=== PATIENT | male | born 1965 | race African-American/Black ===

== ENCOUNTER 2016-07-31 15:51 | Emergency (ER) | payer SELFPAY ==
[~2016-07-31] VITALS: Ht 170.2 cm; Wt 99.8 kg
[2016-07-31 15:55] VITALS: BP 138/93
--- NOTE | 2016-07-31 16:04 | PHYS DOC ---
Adult General Chief Complaint Chief Complaint: KNEE INJURY HPI HPI Patient is a 51 year old male with history of diabetes type 2 who presents today with mild right anterior knee pain that has been going on for 1 month. Patient denies any injuries. Review of Systems Review of Systems Constitutional: Denies fever or chills [] Eyes: Denies change in visual acuity, redness, or eye pain [] HENT: Denies nasal congestion or sore throat [] : Denies dysuria or hematuria [] Musculoskeletal: Right knee pain Integument: Denies rash or skin lesions [] Neurologic: Denies headache, focal weakness or sensory changes [] Endocrine: Denies polyuria or polydipsia [] Physical Exam Physical Exam Constitutional: Well developed, well nourished, no acute distress, non-toxic appearance. [] HENT: Normocephalic, atraumatic, bilateral external ears normal, oropharynx moist, no oral exudates, nose normal. [] Eyes: PERRLA, EOMI, conjunctiva normal, no discharge. [] Skin: Warm, dry, no erythema, no rash. [] Back: No tenderness, no CVA tenderness. [] Extremities: Right knee with no obvious deformity. Tenderness noted on medial and lateral aspects of the right knee. Crepitus noted on the knee during exam. Negative Kenroy sign and negative Jamilah's sign negative anterior-posterior drawer sign to the right knee. +2 right pedal pulse. Cap refill less than 2 seconds the right lower extremity. Sensation intact to the right lower extremity. Neurologic: Alert and oriented X 3, normal motor function, normal sensory function, no focal deficits noted. [] Psychologic: Affect normal, judgement normal, mood normal. [] Current Patient Data Vital Signs Vital Signs Date Time Temp Pulse Resp B/P (MAP) Pulse Ox O2 Delivery O2 Flow Rate FiO2 07/31/16 15:55 97.9 91 16 94 Room Air 97.9 EKG EKG [] Radiology/Procedures Radiology/Procedures []PROCEDURE: KNEE RIGHT 4V Indication: Right knee pain. Time of exam 1606 hours. Alignment is normal. The joint spaces are fairly well-maintained apart from mild medial compartmental narrowing. Mild marginal spurring medially is also seen. No fracture, dislocation or significant effusion is seen. Impression: Mild degenerative changes. No acute bony abnormality is detected. DICTATED and SIGNED BY: CAS VILLEGAS MD DATE: 07/31/16 1619 CC: GUS SINCLAIR APRN ~ Course & Med Decision Making Course & Med Decision Making Pertinent Labs and Imaging studies reviewed. (See chart for details) Patient is in the ED with right knee pain no known injury. Right knee x-rays interpreted by radiologist are negative for any acute findings noted for DJD of the knee. Reed wrap was applied to the right knee by the Ed RN, neurovascular exam done by me is normal. Cap refill <2 seconds. Patient was discharged with some pain medicine. Ice elevation encouraged. Provided an orthopedic doctor for follow-up in one week. Dragon Disclaimer Dragon Disclaimer This electronic medical record was generated, in whole or in part, using a voice recognition dictation system. Departure Departure Impression: Primary Impression: Knee pain, right Additional Impression: Degenerative joint disease of knee, right Disposition: 01 HOME, SELF-CARE Condition: STABLE Referrals: BENEDICTO DURAN MD Follow-up in one week Patient Instructions: Knee Pain, [id number] Additional Instructions: You were seen for right ankle pain your knee xrays were noted for arthritis otherwise no acute findings. Ice and elevate the extremity. Wear the Reed wrap as tolerated. Follow-up with the orthopedic doctor provided in one week if pain continues. Scripts Hydrocodone/Apap 5-325 (NORCO 5-325 TABLET) 1 Each Tablet 1-2 TAB PO Q4-6HRS, #12 TAB Prov: GUS SINCLAIR APRN 07/31/16 Problem Qualifiers Primary Impression: Knee pain, right Chronicity: acute Qualified Codes: M25.561 - Pain in right knee Additional Impression: Degenerative joint disease of knee, right Osteoarthritis type: unspecified Qualified Codes: M17.11 - Unilateral primary osteoarthritis, right knee GUS SINCLAIR APRN July 31, 2016 16:04
--- NOTE | 2016-07-31 16:22 | RAD ---
Indication: Right knee pain. Time of exam 1606 hours. Alignment is normal. The joint spaces are fairly well-maintained apart from mild medial compartmental narrowing. Mild marginal spurring medially is also seen. No fracture, dislocation or significant effusion is seen. Impression: Mild degenerative changes. No acute bony abnormality is detected.
[2016-07-31] MEDS ORDERED: HYDR-971 PO (16:35)
== END 2016-07-31 16:47 | disposition home or self-care (01) ==
LOC: ER 15:51
DX: M25.561 Pain in right knee (principal); M17.11 Unilateral primary osteoarthritis, right knee; E11.9 Type 2 diabetes mellitus without complications
CPT/HCPCS: 73564; 99284

== ENCOUNTER 2019-03-09 09:13 | Emergency (ER) | payer SELFPAY ==
[~2019-03-09] VITALS: Ht 170.2 cm; Wt 95.3 kg
[~2019-03-09 09:13] MED LIST: HYDR-3164 PO
[2019-03-09 09:19] VITALS: BP 163/94
--- NOTE | 2019-03-09 10:14 | RAD ---
CHEST PA LATERAL Clinical indications: Cough. COMPARISON: 05/17/2011. Findings: No acute lung infiltrate or pleural effusion or pulmonary edema or lung mass or pneumothorax is seen. The heart size, pulmonary vasculature, mediastinum and both misti are unremarkable. The osseous structures appear intact. Impression: No acute radiographic abnormality is seen. Electronically signed by: Nasir Lux MD (03/09/2019 10:11 AM) [facility]
[2019-03-09 11:07] LABS: INFLUENZA A PATIENT NEGATIVE (NEGATIVE); INFLUENZA B PATIENT NEGATIVE (NEGATIVE)
[2019-03-09] MEDS ORDERED: METH4TAB2 PO ×2 (11:16→11:18)
[2019-03-09] MEDS ORDERED: AZIT250T PO ×2 (11:16→11:18)
[2019-03-09] MEDS ORDERED: BENZ100C PO ×2 (11:16→11:18)
[2019-03-09] MEDS ORDERED: ALBU2.5V8 IH ×2 (11:16→11:18)
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
== END 2019-03-09 11:32 | disposition home or self-care (01) ==
LOC: ER 09:13
DX: J20.9 Acute bronchitis, unspecified (principal); Z71.6 Tobacco abuse counseling
CPT/HCPCS: 71046; 87804; 99285-25

== ENCOUNTER 2019-05-12 06:12 | Emergency (ER) | payer SELFPAY ==
[~2019-05-12] VITALS: Ht 170.2 cm; Wt 95.5 kg
[~2019-05-12 06:12] MED LIST changes: +ALBU2.5V8 IH; +AZIT250T PO; +BENZ100C PO; +METH4TAB2 PO
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
--- NOTE | 2019-05-12 07:52 | RAD ---
Examination: LUMBAR SPINE MIN 4V History: Low back pain after lifting 4 days ago Comparison/Correlation: None Findings: Total of 5 images of the lumbar spine were obtained. Alignment is normal. Mild spurring in the lower lumbar spine noted. No fracture or bone destruction. Mild disc space narrowing at L5-S1. Mild right sacroiliac joint sclerosis is present. Wedge deformity of the T12 vertebral body is present but of indeterminate age. Spurring noted at this level. Impression: Mild degenerative changes. No acute process. Wedge deformity of T12 of indeterminate age. Electronically signed by: Sravan Marcos MD (05/12/2019 7:49 AM) [id number]
--- NOTE | 2019-05-12 09:19 | RAD ---
CT LUMBAR SPINE WO CONTRAST History low back pain. T12 wedge deformity. Technique: Noncontrast CT was performed of the lumbar spine. Multiplanar reconstructions were performed. Exposure: One or more of the following individualized dose reduction techniques were utilized for this examination: 1. Automated exposure control 2. Adjustment of the mA and/or kV according to patient size 3. Use of iterative reconstruction technique. Comparison: None Findings: Chronic T12 anterior vertebral body wedging. Otherwise, normal vertebral body height. No fracture. Normal alignment. Irregularity of the upper sacrum including S1, may relate to prior trauma. Multilevel degenerative disc changes most prominent L5-S1. Multilevel facet arthropathy most prominent L4-L5 and L5-S1. Adenomatous left adrenal gland thickening. T11-T12: No canal narrowing. Moderate facet arthropathy. Moderate bilateral neural foraminal narrowing. T12-L1: Posterior disc protrusion. No canal or neuroforaminal narrowing. L1-L2: Small posterior disc bulge. Mild facet arthropathy. No canal or neuroforaminal narrowing. L2-L3: Posterior disc bulge. Mild facet arthropathy. No canal or neuroforaminal narrowing. L3-L4: Small posterior disc bulge. Mild facet arthropathy. No canal or neuroforaminal narrowing. L4-L5: Broad-based disc bulge. Mild subarticular recess narrowing. No canal narrowing. Moderate facet arthropathy. Ligament of flavum thickening. Mild bilateral neural foraminal narrowing. L5-S1: Severe disc height loss. Vacuum disc phenomenon. Posterior disc osteophyte complex with possible disc extrusion left subarticular recess.. Moderate facet arthropathy. Mild canal narrowing. Subarticular recess narrowing. Moderate to severe left and moderate right neuroforaminal narrowing. Impression: 1. Chronic T12 anterior vertebral body wedging. 2. Multilevel lumbar spondylosis most prominent L5-S1 with subarticular recess and canal narrowing. 3. Multilevel neuroforaminal narrowing most prominent L5-S1, left greater than right. 4. Deformity of the upper sacrum, may relate to prior trauma. Electronically signed by: Christian Mercado DO (05/12/2019 9:15 AM) [facility]
[2019-05-12] MEDS ORDERED: PRED50TA PO (09:27)
[2019-05-12] MEDS ORDERED: CYCL10TA2 PO (09:27)
[2019-05-12] MEDS ORDERED: DICL75TA PO (09:27)
[2019-05-12 09:28] VITALS: BP 156/67
== END 2019-05-12 09:39 | disposition home or self-care (01) ==
LOC: ER 06:12
DX: M54.5 Low back pain (principal); M62.838 Other muscle spasm; J44.9 Chronic obstructive pulmonary disease, unspecified; E11.9 Type 2 diabetes mellitus without complications; F17.200 Nicotine dependence, unspecified, uncomplicated; Z98.890 Other specified postprocedural states
CPT/HCPCS: 72110; 72131; 99284